=== PATIENT | male | born 1960 | race African-American/Black ===

== ENCOUNTER 2019-02-11 09:22 | Observation (INO) ==
[2019-02-11] MEDS ORDERED: ASPIRIN PO ONE (09:56)
[2019-02-11] MEDS ORDERED: ASPIRIN PR ONE (09:56)
[2019-02-11] MEDS ORDERED: ASPIRIN ONE (10:01)
[2019-02-11 10:26] LABS: EOS# 0.23 X1000 (0.0-0.7); EOS% 4.8 % (0.0-10.0); HEMATOCRIT 45.9 % (42.0-52.0); HEMOGLOBIN 15.9 g/dL (14.0-18.0); LYMPH# 1.89 X1000 (1.2-3.4); LYMPH% 39.1 % (20.5-51.1); MCH 32.4 PG (27-31); MCHC 34.6 g/dL (33-37); MCV 93.5 FL (81-99); MONO# 0.62 X1000 (0.11-0.59); MONO% 12.8 % (1.7-9.3); MPV 12.1 FL (7.4-10.4); NEUT# 2.09 X1000 (1.4-6.5); NEUT% 43.3 % (42.2-75.2); PLT 155 X1000 (130-400); RBC 4.91 XMIL (4.7-6.1); RDW 12.3 % (11.5-14.5); WBC 4.83 X1000 (4.8-10.8)
[2019-02-11 10:33] LABS: INR 0.85; PROTIME 12.3 Seconds (11.0-16.0)
[2019-02-11 10:34] LABS: PTT 26.9 Seconds (22.3-41.8)
[2019-02-11 10:50] LABS: AGAP 5; ALB/GLOB RATIO 1.9; ALBUMIN 4.4 g/dL (3.5-5.0); ALKALINE PHOSPHATASE 91 U/L (32-122); BUN 19 mg/dL (8-22); CALCIUM 9.4 mg/dL (8.8-10.2); CHLORIDE 102 mmol/L (98-107); COSMO 280; CREATININE 1.3 mg/dL (0.7-1.2); ESTIMATED GFR > 60; GLUCOSE 94 mg/dL (70-104); GOT 38 U/L (10-34); GPT 41 U/L (10-44); SODIUM 139 mmol/L (136-145); TCO2 32 mmol/L (25-35); TOTAL BILIRUBIN 0.48 mg/dL (0.20-1.00); TOTAL PROTEIN 6.7 g/dL (6.3-8.3)
[2019-02-11 10:51] LABS: CK PROFILE 784 U/L (24-204)
[2019-02-11 11:06] LABS: CK-MB 8.02 ng/mL (0.0-5.0)
--- NOTE | 2019-02-11 11:22 | Diag Imaging Result Doc PS360 ---
CHEST-2 VIEWS - 02/11/2019 INDICATION: chest pain COMPARISON: 10/02/2018 FINDINGS: The lungs are normally expanded and clear. Heart size and mediastinal contours are normal. No pneumothorax or pleural effusion. IMPRESSION: Negative exam. Electronically signed by Xander Meyer 02/11/2019 11:19 AM
[2019-02-11 14:38] LABS: UR AMPHETAMINES QUAL NONE DETECTED (NONE DETECT); UR BARBITUATES QUAL NONE DETECTED (NONE DETECT); UR BENZODIAZEPIN QUAL NONE DETECTED (NONE DETECT); UR CANNABINOIDS QUAL NONE DETECTED (NONE DETECT); UR COCAINE QUAL PRESUMPTIVE POSITIVE (NONE DETECT); UR METHADONE QUAL NONE DETECTED (NONE DETECT); UR OPIATES QUAL NONE DETECTED (NONE DETECT); UR OXYCODONE QUAL NONE DETECTED (NONE DETECT); UR PCP QUAL NONE DETECTED (NONE DETECT)
[2019-02-11 14:52] LABS: CK INDEX 1.1 (0.0-2.5); CK-MB 7.33 ng/mL (0.0-5.0)
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
[2019-02-11] MEDS ORDERED: NITROGLYCERIN SL PRN (16:32)
[2019-02-11] MEDS ORDERED: ZOFRAN IV PRN (16:32)
[2019-02-11] MEDS ORDERED: TYLENOL PO PRN (16:32)
[2019-02-11] MEDS ORDERED: LABETALOL IV ONE (16:43)
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
[2019-02-11] MEDS ORDERED: COZAAR PO SCH (21:00)
[2019-02-11 21:22] LABS: CK INDEX 1.1 (0.0-2.5); CK-MB 6.4 ng/mL (0.0-5.0)
[2019-02-11] MEDS: COREG PO SCH (22:46)
[2019-02-12 01:37] LABS: CK INDEX 1.2 (0.0-2.5)
[2019-02-12 06:26] LABS: BASO# 0.01 X1000 (0.0-0.2); BASO% 0.2 % (0.0-0.8); EOS# 0.26 X1000 (0.0-0.7); HEMATOCRIT 43.9 % (42.0-52.0); HEMOGLOBIN 15.1 g/dL (14.0-18.0); LYMPH# 1.89 X1000 (1.2-3.4); LYMPH% 43.6 % (20.5-51.1); MCH 32.6 PG (27-31); MCHC 34.4 g/dL (33-37); MCV 94.8 FL (81-99); MONO# 0.39 X1000 (0.11-0.59); MPV 12.6 FL (7.4-10.4); NEUT# 1.78 X1000 (1.4-6.5); NEUT% 41.2 % (42.2-75.2); PLT 137 X1000 (130-400); RBC 4.63 XMIL (4.7-6.1); RDW 12.2 % (11.5-14.5); WBC 4.33 X1000 (4.8-10.8)
--- NOTE | 2019-02-12 06:39 | Diag Imaging Result Doc PS360 ---
EXAM: CHEST-PORTABLE HISTORY: Chest Pain TECHNIQUE: Portable chest single view COMPARISON: 02/11/2019 FINDINGS: The lungs are well expanded. The heart is borderline mildly prominent. The vessels are not distended. There are no infiltrates. No effusion identified. IMPRESSION: Negative exam. Electronically signed by Manny Song 02/12/2019 6:36 AM
[2019-02-12 07:00] LABS: AGAP 9; BUN 17 mg/dL (8-22); CALCIUM 9.1 mg/dL (8.8-10.2); CHLORIDE 102 mmol/L (98-107); CHOLESTEROL 181 mg/dL (0-200); COSMO 278; CREATININE 1.3 mg/dL (0.7-1.2); ESTIMATED GFR > 60; GLUCOSE 78 mg/dL (70-104); HDL 44 mg/dL (35-55); LDL 116 mg/dL; POTASSIUM 4.2 mmol/L (3.5-5.1); SODIUM 139 mmol/L (136-145); TCO2 28 mmol/L (25-35); TRIGLYCERIDES 104 mg/dL (39-160); VLDL 21 mg/dL
[2019-02-12] MEDS ORDERED: PRILOSEC PO SCH (07:00)
[2019-02-12 07:34] VITALS: BP 134/78
--- NOTE | 2019-02-12 08:00 | EKG Report ---
Test Performed on : 02/11/2019 09:25:04 AM Test Reason : chest pain Blood Pressure : / mmHG Vent. Rate : 080 BPM Atrial Rate : 080 BPM P-R Int : 156 ms QRS Dur : 090 ms QT Int : 400 ms P-R-T Axes : 074 036 020 degrees QTc Int : 461 ms Normal sinus rhythm. with sinus arrhythmia. Nonspecific T wave abnormality Prolonged QT Abnormal ECG When compared with ECG of 02-OCT-2018 11:49, No significant change was found Unconfirmed Result
--- NOTE | 2019-02-12 08:01 | EKG Report ---
Test Performed on : 02/11/2019 1:54:57 PM Test Reason : CHEST TIGHTNESS Blood Pressure : / mmHG Vent. Rate : 069 BPM Atrial Rate : 069 BPM P-R Int : 176 ms QRS Dur : 092 ms QT Int : 434 ms P-R-T Axes : 061 010 008 degrees QTc Int : 465 ms Sinus rhythm. with occasional premature ventricular complexes. Nonspecific T wave abnormality Prolonged QT Abnormal ECG When compared with ECG of 11-FEB-2019 09:25, (Unconfirmed) premature ventricular complexes. are now present Unconfirmed Result
[2019-02-12] MEDS: COREG PO SCH (08:09)
[2019-02-12] MEDS ORDERED: LASIX PO SCH (09:00)
[2019-02-12] MEDS ORDERED: ASPIRIN PO SCH (09:00)
[2019-02-12] MEDS ORDERED: KLOR-CON PO SCH (09:00)
--- NOTE | 2019-02-20 17:25 | DISCHARGE SUMMARY ---
ADMISSION DATE: 02/11/2019 DISCHARGE DATE: 02/12/2019 FINAL DISCHARGE DIAGNOSES: 1. Chest pain. 2. Cocaine abuse. 3. Severe dilated cardiomyopathy with an ejection fraction of 15, 20%. 4. Hypertension. 5. Chronic systolic congestive heart failure. 6. Hyperlipidemia. HOSPITAL COURSE: Mr. Taylor is a 58-year-old male with a history of multiple medical problems who initially presented to ER with chest pain. The patient stated that he had been under lot of stress at home and decided to indulge in cocaine to deal with his stress . The patient was admitted to the hospital and placed on telemetry. Serial cardiac enzymes were noted to be negative and patient was still complaining of chest pain the following morning. The patient was counseled extensively about cessation of the illicit drug use. The patient improved clinically and was cleared for discharge home on 02/12/2019. DISCHARGE MEDICATIONS: 1. Klor-Con 10 mEq oral daily. 2. Aspirin 81 mg p.o. daily. 3. Lexapro 10 mg p.o. at bedtime. 4. Coreg 3.125 mg oral twice a day. 5. Lasix 40 mg p.o. daily. 6. Cozaar 12.5 mg oral at bedtime. DISCHARGE DIET: Low-sodium, low-cholesterol diet. ACTIVITY: As tolerated. FOLLOWUP INSTRUCTIONS: The patient will need to follow up with his primary care physician in 1 week. cc: Radha Ulrich MD MTDD
== END 2019-02-12 08:45 | disposition home or self-care (01) ==
LOC: 4N 09:22 → ED 09:22
PROVIDERS: ATTEND Internal Medicine
CPT/HCPCS: 71010; 71020; 71045; 71046; 80048; 80053; 80061; 80101; 80301; 80307; 80324; 80345; 80346; 80353; 80358; 80361; 80365; 82550; 82553; 83735; 83880; 83992; 84484; 85025; 85610; 85730; 93005; 99285; A9270; G0431; G0434; G0479; G0480